=== PATIENT | male | born 1995 | race African-American/Black ===

== ENCOUNTER 2021-05-12 06:35 | Emergency (ER) | payer MEDICAID, OTHER ==
[~2021-05-12] VITALS: Ht 177.8 cm; Wt 64.0 kg
[2021-05-12] MEDS ORDERED: KETOROLAC 30MG/ML VIAL IV STA (06:53)
[2021-05-12] MEDS ORDERED: SODIUM CHLORIDE 0.9% 1,000 ML IV ONE (07:00)
[2021-05-12 07:35] LABS: BASOPHILS % 0.5 % (0.0-2.0); EOSINOPHILS % 1.6 % (0.0-5.0); HEMATOCRIT. 36.7 % (42.0-52.0); HEMOGLOBIN. 12.6 g/dL (14.0-18.0); LYMPHOCYTES % 17.7 % (20.0-50.0); MEAN CORPUSCULAR HEMOGLOBIN 31.7 pg (28.0-32.0); MEAN CORPUSCULAR VOLUME 92.6 fL (80.0-94.0); MEAN PLATELET VOLUME 9.2 fl (7.4-10.4); MONOCYTES % 8.5 % (2.0-8.0); NEUTROPHILS % 71.7 % (40.0-76.0); PLATELET 298 x1000/uL (130-400); RED BLOOD CELL COUNT 3.96 mill/uL (4.7-6.1); RED CELL DISTRIBUTION WIDTH 12.9 % (11.6-14.6)
[2021-05-12 07:37] LABS: CHLORIDE 107 mEq/L (98-107)
[2021-05-12] MEDS ORDERED: POTASSIUM CHLORIDE 20MEQ TABLET SR PO ONE (07:45)
[2021-05-12 09:00] LABS: CLARITY URINE CLEAR (CLEAR); COLOR URINE YELLOW (YELLOW); KETONES URINE NEGATIVE (NEGATIVE); LEUKOCYTE ESTERASE URINE TRACE (NEGATIVE); NITRITE URINE NEGATIVE (NEGATIVE); OCCULT BLOOD URINE 3+ (NEGATIVE); PROTEIN URINE TRACE (NEGATIVE); SPECIFIC GRAVITY URINE 1.015 (1.005-1.030); UROBILINOGEN URINE 0.2 E.U./dL (0.2-1.0)
[2021-05-12] MEDS ORDERED: IBUP-2028 MT (09:42)
[2021-05-12] MEDS ORDERED: ACET-2708 MT (09:43)
[2021-05-12] MEDS ORDERED: TAMS-11 MT (09:43)
[2021-05-12] MEDS ORDERED: MORP15TA67 MT (09:45)
[2021-05-12 09:55] VITALS: BP 130/79
== END 2021-05-12 10:08 | disposition home or self-care (01) ==
LOC: ER 06:35
DX: N20.0 Calculus of kidney (principal)
CPT/HCPCS: 36415; 74176; 80053; 81003; 82248; 83690; 85025; 96361; 96374; 99284; J1885; J7030; 80076